=== PATIENT | female | born 1935 | race Caucasian/White ===

== ENCOUNTER 2017-04-03 07:45 | Emergency (ER) | payer OTHER ==
[~2017-04-03] VITALS: Ht 157.5 cm; Wt 93.3 kg
[~2017-04-03 07:45] MED LIST: ALDACTAZIDE1 TABLET PO; AMLODIPINE BESYL5 MG PO; ASPIRIN81 M2 PO; BACTRIM,SEPT1 TABLET PO; BYSTOLIC PO; BYSTOLIC10 MG PO; CIPRO500 MG PO; COLACE100 MG PO; COZAAR100 MG PO; DIOVAN PO; DIOVAN160 MG PO; FLAGYL500 MG PO; HYDRO; HYDRO TP; LORTAB 5-325 M1 EACH PO; Levaquin PO; NYST; NYST TP; SPIRONOLACTONE25 MG PO; TOVIAZ4 MG PO; [UNRECOGNIZED DRUG - OTHER]; [UNRECOGNIZED DRUG - OTHER] TP; [UNRECOGNIZED DRUG - REMARK] IV
[2017-04-03 09:50] LABS: EOSINOPHIL COUNT 0.2 K/uL (0-0.3); HEMATOCRIT 36.8 % (36.0-46.0); IMMATURE GRANULOCYTE (%) 0.3 % (0.0-0.7); INSTRUMENT ABS NEUTROPHIL CT 7.1 K/uL; LYMPHOCYTE COUNT 1.5 K/uL (1.0-2.8); MCH 28.3 PG (29.0-34.0); MCHC 32.3 G/DL (30.0-36.0); MCV 87.6 FL (83-99); MEAN PLAT.VOLUME 10.8 uM^3 (9.5-12.4); MONOCYTE (%) 8.1 % (3-12); MONOCYTE COUNT 0.8 K/uL (0-0.8); NEUTROPHIL (%) 73.5 % (45-76); NEUTROPHIL COUNT 7.1 K/uL (1.8-6.4); PLATELET COUNT 319 K/uL (156-360); RBC DIS.WIDTH-CV 12.6 % (11.8-14.6); RBC DIS.WIDTH-SD 40.3 % (39-53); WHITE BLOOD COUNT 9.6 K/uL (4.1-10.2)
[2017-04-03 10:02] LABS: CHLORIDE 103 mEq/L (99-109); POTASSIUM 4.1 mEq/L (3.7-5.4); SODIUM 136 mEq/L (136-147)
[2017-04-03 10:04] LABS: GLUCOSE 139 mg/dL (70-99)
[2017-04-03 10:05] LABS: ANION GAP 10 MEQ/L (2-14)
[2017-04-03 10:08] LABS: GFR ESTIMATE (CALCULATED) > 59 mL/min/
[2017-04-03 10:09] LABS: UREA NITROGEN (BUN) 15 mg/dL (9-23)
[2017-04-03] MEDS ORDERED: TYLENOL WITH C1 EACH PO (10:42)
[2017-04-03] MEDS ORDERED: CIPRO500 MG PO (10:42)
[2017-04-03] MEDS ORDERED: FLAGYL500 MG PO (10:42)
[2017-04-03] MEDS ORDERED: BENTYL20 MG PO (11:00)
[2017-04-03 11:10] VITALS: BP 177/108
== END 2017-04-03 11:11 | disposition home or self-care (01) ==
LOC: EME 07:45
PROVIDERS: Emergency Medicine
DX: K57.32 Diverticulitis of large intestine without perforation or abscess without bleeding (principal); I10 Essential (primary) hypertension; Z90.710 Acquired absence of both cervix and uterus; Z88.0 Allergy status to penicillin; Z79.82 Long term (current) use of aspirin
CPT/HCPCS: 74176; 80048; 81003; 85025; 99281; 99284; J7030

== ENCOUNTER 2017-04-10 11:34 | Emergency (ER) | payer OTHER ==
[~2017-04-10] VITALS: Ht 157.5 cm; Wt 93.3 kg
[~2017-04-10 11:34] MED LIST changes: +BENTYL20 MG PO; +TYLENOL WITH C1 EACH PO
[2017-04-10 14:49] LABS: ADD MIUA? YES; BILIRUBIN NEGATIVE; BLOOD NEGATIVE; COLOR YELLOW ((YELLOW)); GLUCOSE (STRIP) NEGATIVE; KETONES NEGATIVE; LEUKOCYTES MODERATE; NITRITE NEGATIVE; PROTEIN (STRIP) 30; SPECIFIC GRAVITY 1.006 (1.000-1.030); UROBILINOGEN 0.2 MG/DL (0.2-1.0)
[2017-04-10 14:52] LABS: BACTERIA RARE /HPF; EPITHELIAL CELLS 1+ /HPF; MUCUS NONE SEEN /LPF; RED BLOOD CELLS 0-5 /HPF (0-5); UCUL ADDED? NO; WHITE BLOOD CELLS 20-30 /HPF (0-5)
[2017-04-10] MEDS ORDERED: NAPROXEN500 MG PO (15:01)
[2017-04-10] MEDS ORDERED: LIDODERM 5% P1 PATCH TD (15:01)
[2017-04-10 15:12] VITALS: BP 158/97
== END 2017-04-10 15:16 | disposition home or self-care (01) ==
LOC: EME 11:34
PROVIDERS: Physician Assistant Medical
DX: M54.5 Low back pain (principal); I10 Essential (primary) hypertension; M16.0 Bilateral primary osteoarthritis of hip; Z88.0 Allergy status to penicillin; Z90.710 Acquired absence of both cervix and uterus; Z91.040 Latex allergy status; Z88.1 Allergy status to other antibiotic agents; Z91.013 Allergy to seafood
CPT/HCPCS: 73502; 80053; 81003; 83690; 85027; 87086; 99281; 99283; J1885

== ENCOUNTER 2017-04-24 07:04 | Emergency (ER) | payer OTHER ==
[~2017-04-24] VITALS: Ht 157.5 cm; Wt 92.1 kg
[~2017-04-24 07:04] MED LIST changes: +LIDODERM 5% P1 PATCH TD; +NAPROXEN500 MG PO
[2017-04-24 07:30] LABS: HEMATOCRIT 37.7 % (36.0-46.0); MCH 28.2 PG (29.0-34.0); MCHC 33.2 G/DL (30.0-36.0); MCV 85.1 FL (83-99); MEAN PLAT.VOLUME 10.7 uM^3 (9.5-12.4); PLATELET COUNT 295 K/uL (156-360); RBC DIS.WIDTH-CV 12.3 % (11.8-14.6); RBC DIS.WIDTH-SD 38.2 % (39-53); RED BLOOD COUNT 4.43 M/uL (3.80-5.20); WHITE BLOOD COUNT 9.7 K/uL (4.1-10.2)
[2017-04-24 07:55] LABS: TROP-I INTERPRETATION NEGATIVE; TROPONIN-I < 0.01 ng/mL (0.0-0.30)
[2017-04-24 08:24] LABS: CHLORIDE 96 mEq/L (99-109); POTASSIUM 4.1 mEq/L (3.7-5.4); SODIUM 129 mEq/L (136-147)
[2017-04-24 08:28] LABS: TOTAL BILIRUBIN 0.4 mg/dL (0.0-1.0)
[2017-04-24 08:51] LABS: GLUCOSE 161 mg/dL (70-99)
[2017-04-24 08:52] LABS: ANION GAP 11 MEQ/L (2-14)
[2017-04-24 08:54] LABS: ALKALINE PHOSPHATASE 68 IU/L (3-129); GFR ESTIMATE (CALCULATED) > 59 mL/min/
[2017-04-24 08:55] LABS: UREA NITROGEN (BUN) 8 mg/dL (9-23)
[2017-04-24 08:58] LABS: LIPASE 21 U/L (1.0-51.0)
[2017-04-24 10:26] LABS: ADD MIUA? YES; BILIRUBIN NEGATIVE; BLOOD NEGATIVE; COLOR YELLOW ((YELLOW)); GLUCOSE (STRIP) NEGATIVE; KETONES NEGATIVE; LEUKOCYTES MODERATE; NITRITE NEGATIVE; PROTEIN (STRIP) 30; SPECIFIC GRAVITY 1.008 (1.000-1.030); UROBILINOGEN 0.2 MG/DL (0.2-1.0)
[2017-04-24 10:40] LABS: BACTERIA RARE /HPF; EPITHELIAL CELLS 1+ /HPF; HYALINE CASTS 0-5 /LPF; MUCUS TRACE /LPF; RED BLOOD CELLS 0-5 /HPF (0-5); UCUL ADDED? NO; WHITE BLOOD CELLS 30-40 /HPF (0-5)
[2017-04-24] MEDS ORDERED: ZOFRAN ODT4 MG PO (11:07)
[2017-04-24] MEDS ORDERED: MACROBID100 MG PO (11:07)
[2017-04-24 11:25] VITALS: BP 156/84
== END 2017-04-24 11:26 | disposition home or self-care (01) ==
LOC: EME 07:04
PROVIDERS: Nurse Practitioner Family
DX: K57.32 Diverticulitis of large intestine without perforation or abscess without bleeding (principal); N39.0 Urinary tract infection, site not specified; R11.2 Nausea with vomiting, unspecified; I10 Essential (primary) hypertension; Z79.82 Long term (current) use of aspirin; Z90.710 Acquired absence of both cervix and uterus; Z88.0 Allergy status to penicillin
CPT/HCPCS: 74176; 80053; 81003; 83690; 84484; 85027; 99281; 99284; J2405; J7030

== ENCOUNTER 2017-04-26 23:05 | Emergency (ER) | payer OTHER ==
[~2017-04-26] VITALS: Ht 157.5 cm; Wt 92.5 kg
[~2017-04-26 23:05] MED LIST changes: +MACROBID100 MG PO; +ZOFRAN ODT4 MG PO
[2017-04-26 23:48] LABS: HEMATOCRIT 36.8 % (36.0-46.0); MCH 28.6 PG (29.0-34.0); MCHC 34.2 G/DL (30.0-36.0); MCV 83.4 FL (83-99); MEAN PLAT.VOLUME 10.7 uM^3 (9.5-12.4); PLATELET COUNT 303 K/uL (156-360); RBC DIS.WIDTH-CV 12.1 % (11.8-14.6); RBC DIS.WIDTH-SD 36.5 % (39-53); RED BLOOD COUNT 4.41 M/uL (3.80-5.20); WHITE BLOOD COUNT 11.2 K/uL (4.1-10.2)
[2017-04-26 23:57] LABS: CHLORIDE 90 mEq/L (99-109); POTASSIUM 4.2 mEq/L (3.7-5.4); SODIUM 123 mEq/L (136-147)
[2017-04-27] LABS: GLUCOSE 147 mg/dL (70-99)
[2017-04-27 00:01] LABS: ANION GAP 12 MEQ/L (2-14); TOTAL BILIRUBIN 0.4 mg/dL (0.0-1.0)
[2017-04-27 00:03] LABS: ALKALINE PHOSPHATASE 65 IU/L (3-129); GFR ESTIMATE (CALCULATED) 56 mL/min/
[2017-04-27 00:04] LABS: UREA NITROGEN (BUN) 8 mg/dL (9-23)
[2017-04-27 00:05] LABS: DIRECT BILIRUBIN 0.2 mg/dL (0.0-0.3)
[2017-04-27 00:07] LABS: LIPASE 20 U/L (1.0-51.0)
[2017-04-27] MEDS ORDERED: BYSTOLIC20 MG PO (02:33)
[2017-04-27] MEDS ORDERED: LOSARTAN POTAS100 MG PO (02:34)
[2017-04-27] MEDS ORDERED: SPIRONOLACTONE25 MG PO (02:34)
[2017-04-27] MEDS ORDERED: ASPIR 8181 M1 PO (02:34)
[2017-04-27 04:10] VITALS: BP 178/88
[2017-04-27] MEDS ORDERED: BYSTOLIC10 MG PO (10:47)
[2017-04-27] MEDS ORDERED: MELOXICAM15 MG PO (10:48)
[2017-04-27] MEDS ORDERED: OMEPRAZOLE40 M1 PO (10:49)
== END 2017-04-27 04:11 | disposition home or self-care (01) ==
LOC: EME 23:05
PROVIDERS: Emergency Medicine
DX: E86.0 Dehydration (principal); E87.1 Hypo-osmolality and hyponatremia; K21.9 Gastro-esophageal reflux disease without esophagitis; J45.909 Unspecified asthma, uncomplicated; I10 Essential (primary) hypertension; F32.9 Major depressive disorder, single episode, unspecified; E11.9 Type 2 diabetes mellitus without complications; Z88.0 Allergy status to penicillin
CPT/HCPCS: 80048; 80076; 83690; 85027; 99281; 99285; J2405; J7030

== ENCOUNTER 2017-04-27 05:40 | Inpatient (IN) | payer OTHER ==
[~2017-04-27] VITALS: Ht 157.5 cm; Wt 92.5 kg
[~2017-04-27 05:40] MED LIST changes: +ASPIR 8181 M1 PO; +BYSTOLIC20 MG PO; +LOSARTAN POTAS100 MG PO
[2017-04-27] MEDS ORDERED: BYSTOLIC10 MG PO (10:47)
[2017-04-27] MEDS ORDERED: MELOXICAM15 MG PO (10:48)
[2017-04-27] MEDS ORDERED: OMEPRAZOLE40 M1 PO (10:49)
[2017-04-27 12:57] LABS: ANION GAP 7 MEQ/L (2-14); CHLORIDE 96 MEQ/L (99-109); GFR ESTIMATE (CALCULATED) > 59 mL/min/; GLUCOSE 125 mg/dL (70-99); POTASSIUM 4.4 MEQ/L (3.7-5.4); SAMPLE HEMOLYSIS CHECK 0; SAMPLE ICTERIC CHECK 0; SAMPLE LIPEMIA CHECK 0; SODIUM 128 MEQ/L (136-147); UREA NITROGEN (BUN) 6 mg/dL (9-23)
[2017-04-27 14:40] VITALS: BP 115/60
[2017-04-27 16:55] LABS: POINT-OF-CARE METER ID UU14174225
[2017-04-27 18:42] LABS: ANION GAP 8 MEQ/L (2-14); CHLORIDE 99 MEQ/L (99-109); GFR ESTIMATE (CALCULATED) > 59 mL/min/; GLUCOSE 134 mg/dL (70-99); SAMPLE HEMOLYSIS CHECK 0; SAMPLE ICTERIC CHECK 0; SAMPLE LIPEMIA CHECK 0; SODIUM 130 MEQ/L (136-147); UREA NITROGEN (BUN) 6 mg/dL (9-23)
[2017-04-27 18:55] LABS: POTASSIUM 3.5 MEQ/L (3.7-5.4)
[2017-04-28] VITALS: BP 156/71
[2017-04-28 00:09] LABS: ADD MIUA? YES; BILIRUBIN NEGATIVE; BLOOD NEGATIVE; COLOR STRAW ((YELLOW)); GLUCOSE (STRIP) NEGATIVE; KETONES NEGATIVE; LEUKOCYTES TRACE; NITRITE NEGATIVE; PROTEIN (STRIP) NEGATIVE; SPECIFIC GRAVITY 1.005 (1.000-1.030); UROBILINOGEN 0.2 MG/DL (0.2-1.0)
[2017-04-28 00:13] LABS: BACTERIA NONE SEEN /HPF; EPITHELIAL CELLS RARE /HPF; MUCUS NONE SEEN /LPF; RED BLOOD CELLS 0-5 /HPF (0-5); UCUL ADDED? NO
[2017-04-28 05:27] LABS: POINT-OF-CARE METER ID UU14174225
[2017-04-28 06:33] LABS: ALKALINE PHOSPHATASE 49 IU/L (3-129); ANION GAP 9 MEQ/L (2-14); BASOPHIL COUNT 0.1 K/uL (0-0.1); CHLORIDE 102 MEQ/L (99-109); EOSINOPHIL (%) 3.3 % (0-5); EOSINOPHIL COUNT 0.3 K/uL (0-0.3); GFR ESTIMATE (CALCULATED) > 59 mL/min/; GLUCOSE 111 mg/dL (70-99); HEMATOCRIT 32.4 % (36.0-46.0); IMMATURE GRANULOCYTE (%) 0.5 % (0.0-0.7); IMMATURE GRANULOCYTE COUNT 0.1 K/uL; INSTRUMENT ABS NEUTROPHIL CT 5.9 K/uL; LYMPHOCYTE COUNT 2.2 K/uL (1.0-2.8); MCH 28.1 PG (29.0-34.0); MCHC 32.7 G/DL (30.0-36.0); MCV 85.9 FL (83-99); MEAN PLAT.VOLUME 11.2 uM^3 (9.5-12.4); MONOCYTE (%) 12.4 % (3-12); MONOCYTE COUNT 1.2 K/uL (0-0.8); NEUTROPHIL (%) 60.5 % (45-76); NEUTROPHIL COUNT 5.9 K/uL (1.8-6.4); PLATELET COUNT 252 K/uL (156-360); POTASSIUM 3.7 MEQ/L (3.7-5.4); RBC DIS.WIDTH-CV 12.8 % (11.8-14.6); RED BLOOD COUNT 3.77 M/uL (3.80-5.20); SAMPLE HEMOLYSIS CHECK 0; SAMPLE ICTERIC CHECK 0; SAMPLE LIPEMIA CHECK 0; SODIUM 133 MEQ/L (136-147); TOTAL BILIRUBIN 0.4 MG/DL (0.0-1.0); UREA NITROGEN (BUN) 6 mg/dL (9-23); WHITE BLOOD COUNT 9.7 K/uL (4.1-10.2)
[2017-04-28 08:00] VITALS: BP 172/81
[2017-04-28 12:00] VITALS: BP 145/79
[2017-04-28 12:14] LABS: POINT-OF-CARE METER ID UU14188625
[2017-04-28 17:31] VITALS: BP 131/60
[2017-04-29 00:23] VITALS: BP 143/86
[2017-04-29 00:39] LABS: POINT-OF-CARE METER ID UU14188625
[2017-04-29 06:00] LABS: BASOPHIL COUNT 0.1 K/uL (0-0.1); EOSINOPHIL COUNT 0.2 K/uL (0-0.3); HEMATOCRIT 31.4 % (36.0-46.0); IMMATURE GRANULOCYTE (%) 0.6 % (0.0-0.7); IMMATURE GRANULOCYTE COUNT 0.1 K/uL; INSTRUMENT ABS NEUTROPHIL CT 8.2 K/uL; LYMPHOCYTE COUNT 1.7 K/uL (1.0-2.8); MCH 28.5 PG (29.0-34.0); MCHC 32.8 G/DL (30.0-36.0); MCV 86.7 FL (83-99); MEAN PLAT.VOLUME 10.9 uM^3 (9.5-12.4); MONOCYTE (%) 12.4 % (3-12); MONOCYTE COUNT 1.5 K/uL (0-0.8); NEUTROPHIL (%) 69.9 % (45-76); NEUTROPHIL COUNT 8.2 K/uL (1.8-6.4); PLATELET COUNT 231 K/uL (156-360); RBC DIS.WIDTH-CV 12.9 % (11.8-14.6); RBC DIS.WIDTH-SD 40.8 % (39-53); RED BLOOD COUNT 3.62 M/uL (3.80-5.20); WHITE BLOOD COUNT 11.7 K/uL (4.1-10.2)
[2017-04-29 06:24] LABS: ALKALINE PHOSPHATASE 49 IU/L (3-129); ANION GAP 8 MEQ/L (2-14); CHLORIDE 100 MEQ/L (99-109); GFR ESTIMATE (CALCULATED) > 59 mL/min/; GLUCOSE 120 mg/dL (70-99); POTASSIUM 3.7 MEQ/L (3.7-5.4); SAMPLE HEMOLYSIS CHECK 0; SAMPLE ICTERIC CHECK 0; SAMPLE LIPEMIA CHECK 0; SODIUM 132 MEQ/L (136-147); TOTAL BILIRUBIN 0.4 MG/DL (0.0-1.0); UREA NITROGEN (BUN) 11 mg/dL (9-23)
[2017-04-29 06:30] LABS: POINT-OF-CARE METER ID UU13113717
[2017-04-29 07:46] LABS: Estimated Average Glucose 146 mg/dL (70-123); HEMOGLOBIN A1c (GLYCOHEMOGLOB) 6.7 % HGB (Below 5.7)
[2017-04-29 07:47] VITALS: BP 155/74
[2017-04-29 09:58] LABS: URIC ACID 4.3 mg/dL (3.1-9.2)
[2017-04-29 10:11] LABS: ERTH.SED.RATE 26 MM/HR (0-30)
[2017-04-29 10:14] LABS: C-REACTIVE PROTEIN 49.8 MG/L (0-10)
[2017-04-29 12:47] LABS: POINT-OF-CARE METER ID UU14188625
[2017-04-29 16:48] LABS: POINT-OF-CARE METER ID UU13113717
[2017-04-29 23:30] VITALS: BP 137/65
[2017-04-30 00:31] LABS: POINT-OF-CARE METER ID UU14174225
[2017-04-30 05:47] LABS: BASOPHIL COUNT 0.1 K/uL (0-0.1); EOSINOPHIL (%) 1.8 % (0-5); EOSINOPHIL COUNT 0.3 K/uL (0-0.3); HEMATOCRIT 31.7 % (36.0-46.0); IMMATURE GRANULOCYTE (%) 0.8 % (0.0-0.7); IMMATURE GRANULOCYTE COUNT 0.1 K/uL; INSTRUMENT ABS NEUTROPHIL CT 9.6 K/uL; MCH 28.4 PG (29.0-34.0); MCHC 33.1 G/DL (30.0-36.0); MCV 85.7 FL (83-99); MEAN PLAT.VOLUME 10.9 uM^3 (9.5-12.4); MONOCYTE (%) 12.5 % (3-12); MONOCYTE COUNT 1.7 K/uL (0-0.8); NEUTROPHIL (%) 70.1 % (45-76); NEUTROPHIL COUNT 9.6 K/uL (1.8-6.4); PLATELET COUNT 234 K/uL (156-360); RBC DIS.WIDTH-SD 40.3 % (39-53); WHITE BLOOD COUNT 13.6 K/uL (4.1-10.2)
[2017-04-30 06:14] LABS: ALKALINE PHOSPHATASE 48 IU/L (3-129); ANION GAP 9 MEQ/L (2-14); CHLORIDE 96 MEQ/L (99-109); GFR ESTIMATE (CALCULATED) > 59 mL/min/; GLUCOSE 120 mg/dL (70-99); POTASSIUM 3.7 MEQ/L (3.7-5.4); SAMPLE HEMOLYSIS CHECK 0; SAMPLE ICTERIC CHECK 0; SAMPLE LIPEMIA CHECK 0; SODIUM 130 MEQ/L (136-147); UREA NITROGEN (BUN) 9 mg/dL (9-23)
[2017-04-30 06:15] LABS: TOTAL BILIRUBIN 0.6 MG/DL (0.0-1.0)
[2017-04-30 07:46] VITALS: BP 137/61
[2017-04-30 13:25] LABS: POINT-OF-CARE METER ID UU13113717; POINT-OF-CARE USER ID STWAMT
[2017-04-30 15:25] VITALS: BP 140/66
[2017-04-30 16:58] LABS: ADD MIUA? YES; BILIRUBIN NEGATIVE; BLOOD SMALL; COLOR YELLOW ((YELLOW)); GLUCOSE (STRIP) NEGATIVE; KETONES NEGATIVE; LEUKOCYTES LARGE; NITRITE NEGATIVE; PROTEIN (STRIP) NEGATIVE; SPECIFIC GRAVITY 1.004 (1.000-1.030); UROBILINOGEN 0.2 MG/DL (0.2-1.0)
[2017-04-30 17:26] LABS: BACTERIA RARE /HPF; EPITHELIAL CELLS 1+ /HPF; MUCUS TRACE /LPF; UCUL ADDED? YES; UNCLASSIFIED CRYSTALS 3+ /HPF; WHITE BLOOD CELLS TNTC /HPF (0-5)
[2017-04-30 18:06] LABS: POINT-OF-CARE METER ID UU13113717; POINT-OF-CARE USER ID STWAMT
[2017-04-30 23:42] VITALS: BP 158/69
[2017-05-01 00:37] LABS: POINT-OF-CARE METER ID UU14174225
[2017-05-01 05:40] LABS: EOSINOPHIL COUNT 0.4 K/uL (0-0.3); HEMATOCRIT 29.1 % (36.0-46.0); IMMATURE GRANULOCYTE (%) 0.9 % (0.0-0.7); IMMATURE GRANULOCYTE COUNT 0.1 K/uL; INSTRUMENT ABS NEUTROPHIL CT 8.2 K/uL; LYMPHOCYTE COUNT 1.6 K/uL (1.0-2.8); MCHC 35.1 G/DL (30.0-36.0); MCV 85.6 FL (83-99); MEAN PLAT.VOLUME 11.4 uM^3 (9.5-12.4); MONOCYTE (%) 11.2 % (3-12); MONOCYTE COUNT 1.3 K/uL (0-0.8); NEUTROPHIL (%) 71.1 % (45-76); NEUTROPHIL COUNT 8.2 K/uL (1.8-6.4); PLATELET COUNT 212 K/uL (156-360); RBC DIS.WIDTH-CV 13.1 % (11.8-14.6); WHITE BLOOD COUNT 11.5 K/uL (4.1-10.2)
[2017-05-01 06:33] LABS: ALKALINE PHOSPHATASE 47 IU/L (3-129); ANION GAP 8 MEQ/L (2-14); CHLORIDE 98 MEQ/L (99-109); GFR ESTIMATE (CALCULATED) > 59 mL/min/; GLUCOSE 123 mg/dL (70-99); POTASSIUM 3.7 MEQ/L (3.7-5.4); SAMPLE HEMOLYSIS CHECK 0; SAMPLE ICTERIC CHECK 0; SAMPLE LIPEMIA CHECK 0; SODIUM 133 MEQ/L (136-147); TOTAL BILIRUBIN 0.5 MG/DL (0.0-1.0); UREA NITROGEN (BUN) 12 mg/dL (9-23)
[2017-05-01 06:35] LABS: POINT-OF-CARE METER ID UU14174225
[2017-05-01 08:12] VITALS: BP 159/74
[2017-05-01 12:02] LABS: POINT-OF-CARE METER ID UU14174225
[2017-05-01] MEDS ORDERED: AMLODIPINE BESYL5 MG PO (12:07)
== END 2017-05-01 13:05 | disposition home or self-care (01) | DRG 641 ==
LOC: EME 05:40 → EDOF 07:57 → 5SOUTH 07:57 → EDOF 08:27 → 5SOUTH 11:28
PROVIDERS: Hospitalist
DX: E87.1 Hypo-osmolality and hyponatremia (principal); K57.32 Diverticulitis of large intestine without perforation or abscess without bleeding; J90 Pleural effusion, not elsewhere classified; K21.9 Gastro-esophageal reflux disease without esophagitis; I10 Essential (primary) hypertension; Z60.2 Problems related to living alone; E11.9 Type 2 diabetes mellitus without complications; J45.909 Unspecified asthma, uncomplicated; K52.9 Noninfective gastroenteritis and colitis, unspecified; M17.12 Unilateral primary osteoarthritis, left knee; M18.12 Unilateral primary osteoarthritis of first carpometacarpal joint, left hand; R11.0 Nausea; K59.00 Constipation, unspecified; Z88.0 Allergy status to penicillin; Z91.013 Allergy to seafood; Z88.1 Allergy status to other antibiotic agents; Z91.040 Latex allergy status; Z90.711 Acquired absence of uterus with remaining cervical stump; Z79.82 Long term (current) use of aspirin; Z80.1 Family history of malignant neoplasm of trachea, bronchus and lung; Z82.49 Family history of ischemic heart disease and other diseases of the circulatory system
CPT/HCPCS: 73130; 74176; 80048; 80048 91; 80053; 80076; 81003; 82948; 83036; 83690; 84484; 84550; 85025; 85027; 85651; 86140; 87086; 99281; 99284; 99285; J0360; J1644; J1815; J2405; J7030; J7042; S0028

== ENCOUNTER 2017-05-04 07:53 | Inpatient (IN) | payer OTHER ==
[~2017-05-04] VITALS: Ht 157.5 cm; Wt 88.8 kg
[~2017-05-04 07:53] MED LIST changes: +MELOXICAM15 MG PO; +OMEPRAZOLE40 M1 PO
[2017-05-04 08:57] LABS: BASOPHIL COUNT 0.1 K/uL (0-0.1); EOSINOPHIL (%) 1.9 % (0-5); EOSINOPHIL COUNT 0.2 K/uL (0-0.3); HEMATOCRIT 33.2 % (36.0-46.0); IMMATURE GRANULOCYTE (%) 0.5 % (0.0-0.7); IMMATURE GRANULOCYTE COUNT 0.1 K/uL; INSTRUMENT ABS NEUTROPHIL CT 6.7 K/uL; LYMPHOCYTE COUNT 1.3 K/uL (1.0-2.8); MCH 28.8 PG (29.0-34.0); MCHC 33.4 G/DL (30.0-36.0); MEAN PLAT.VOLUME 10.8 uM^3 (9.5-12.4); MONOCYTE (%) 10.2 % (3-12); NEUTROPHIL (%) 72.6 % (45-76); NEUTROPHIL COUNT 6.7 K/uL (1.8-6.4); RBC DIS.WIDTH-CV 13.1 % (11.8-14.6); RBC DIS.WIDTH-SD 40.5 % (39-53); RED BLOOD COUNT 3.86 M/uL (3.80-5.20); WHITE BLOOD COUNT 9.3 K/uL (4.1-10.2)
[2017-05-04 09:05] LABS: CHLORIDE 98 mEq/L (99-109); POTASSIUM 3.4 mEq/L (3.7-5.4); SODIUM 136 mEq/L (136-147)
[2017-05-04 09:07] LABS: GLUCOSE 167 mg/dL (70-99)
[2017-05-04 09:08] LABS: ANION GAP 12 MEQ/L (2-14)
[2017-05-04 09:09] LABS: TOTAL BILIRUBIN 0.4 mg/dL (0.0-1.0)
[2017-05-04 09:10] LABS: ALKALINE PHOSPHATASE 65 IU/L (3-129); PLATELET COUNT 297 K/uL (156-360)
[2017-05-04 09:11] LABS: GFR ESTIMATE (CALCULATED) > 59 mL/min/
[2017-05-04 09:12] LABS: UREA NITROGEN (BUN) 7 mg/dL (9-23)
[2017-05-04 09:14] LABS: TROP-I INTERPRETATION NEGATIVE; TROPONIN-I < 0.01 ng/mL (0.0-0.30)
[2017-05-04 09:19] LABS: INTER. NORMALIZED RATIO 1.1
[2017-05-04] MEDS ORDERED: EXTRA STRENGTH500 M1 PO (11:38)
[2017-05-04] MEDS ORDERED: BENTYL20 MG PO (11:40)
[2017-05-04] MEDS ORDERED: ZOFRAN ODT8 MG PO (11:42)
[2017-05-04] MEDS ORDERED: NAPROXEN500 MG PO (11:42)
[2017-05-04] MEDS ORDERED: ALDACTONE25 MG PO (11:43)
[2017-05-04 12:32] VITALS: BP 169/79
[2017-05-04 13:21] LABS: TROP-I INTERPRETATION NEGATIVE; TROPONIN-I 0.02 ng/mL (0.0-0.30)
[2017-05-04 14:38] LABS: TROP-I INTERPRETATION NEGATIVE; TROPONIN-I 0.03 ng/mL (0.0-0.30)
[2017-05-04 14:40] LABS: ANION GAP 12 MEQ/L (2-14); CHLORIDE 96 MEQ/L (99-109); GFR ESTIMATE (CALCULATED) > 59 mL/min/; GLUCOSE 175 mg/dL (70-99); POTASSIUM 3.3 MEQ/L (3.7-5.4); SAMPLE HEMOLYSIS CHECK 0; SAMPLE ICTERIC CHECK 0; SAMPLE LIPEMIA CHECK 0; SODIUM 135 MEQ/L (136-147); UREA NITROGEN (BUN) 7 mg/dL (9-23)
[2017-05-04 14:42] LABS: MAGNESIUM 0.9 mg/dl (1.3-2.7)
[2017-05-04 15:30] VITALS: BP 172/85
[2017-05-04 16:00] VITALS: BP 158/71
[2017-05-04 18:33] LABS: TROP-I INTERPRETATION NEGATIVE; TROPONIN-I 0.04 ng/mL (0.0-0.30)
[2017-05-04 20:00] VITALS: BP 170/86
[2017-05-04 23:07] VITALS: BP 158/73
[2017-05-05 03:55] VITALS: BP 139/65
[2017-05-05 05:46] LABS: HEMATOCRIT 34.3 % (36.0-46.0); MCH 28.6 PG (29.0-34.0); MCHC 33.5 G/DL (30.0-36.0); MCV 85.3 FL (83-99); MEAN PLAT.VOLUME 10.7 uM^3 (9.5-12.4); PLATELET COUNT 338 K/uL (156-360); RBC DIS.WIDTH-CV 13.1 % (11.8-14.6); RBC DIS.WIDTH-SD 40.4 % (39-53); RED BLOOD COUNT 4.02 M/uL (3.80-5.20); WHITE BLOOD COUNT 9.2 K/uL (4.1-10.2)
[2017-05-05 06:13] LABS: ANION GAP 10 MEQ/L (2-14); CHLORIDE 95 MEQ/L (99-109); GFR ESTIMATE (CALCULATED) > 59 mL/min/; GLUCOSE 131 mg/dL (70-99); POTASSIUM 4.1 MEQ/L (3.7-5.4); SAMPLE HEMOLYSIS CHECK 0; SAMPLE ICTERIC CHECK 0; SAMPLE LIPEMIA CHECK 0; SODIUM 134 MEQ/L (136-147); UREA NITROGEN (BUN) 10 mg/dL (9-23)
[2017-05-05 07:36] VITALS: BP 156/75
[2017-05-05 11:22] VITALS: BP 137/76
[2017-05-05 16:05] VITALS: BP 144/69
[2017-05-05 19:24] VITALS: BP 134/60
[2017-05-05 23:30] VITALS: BP 135/71
[2017-05-06 04:17] VITALS: BP 133/73
[2017-05-06 07:45] VITALS: BP 156/72
[2017-05-06 07:46] LABS: Estimated Average Glucose 140 mg/dL (70-123); HEMOGLOBIN A1c (GLYCOHEMOGLOB) 6.5 % HGB (Below 5.7)
[2017-05-06 11:51] VITALS: BP 134/63
[2017-05-06] MEDS ORDERED: ELIQUIS5 MG PO (12:27)
== END 2017-05-06 15:45 | disposition home or self-care (01) | DRG 292 ==
LOC: EME 07:53 → EDOF 10:36 → 5WEST 12:06 → 4EAST 15:17
PROVIDERS: Emergency Medicine; Hospitalist; Internal Medicine Cardiovascular Disease
DX: I50.31 Acute diastolic (congestive) heart failure (principal); E11.65 Type 2 diabetes mellitus with hyperglycemia; I48.0 Paroxysmal atrial fibrillation; I11.0 Hypertensive heart disease with heart failure; J98.4 Other disorders of lung; K57.92 Diverticulitis of intestine, part unspecified, without perforation or abscess without bleeding; I49.3 Ventricular premature depolarization; K21.9 Gastro-esophageal reflux disease without esophagitis; I43 Cardiomyopathy in diseases classified elsewhere; K59.00 Constipation, unspecified; R09.02 Hypoxemia; Z68.37 Body mass index [BMI] 37.0-37.9, adult; J45.909 Unspecified asthma, uncomplicated; Z79.899 Other long term (current) drug therapy; Z79.82 Long term (current) use of aspirin; Z72.0 Tobacco use; Z82.49 Family history of ischemic heart disease and other diseases of the circulatory system
CPT/HCPCS: 71020; 80048; 80048 91; 80053; 81003; 83036; 83735; 83880; 84443; 84484; 85025; 85027; 85610; 93005; 93306; 93971; 94799; 99281; 99285; J0360; J1650; J1940; J2405; J3475; J3480

== ENCOUNTER 2017-06-12 11:20 | Day surgery (SDC) | payer OTHER ==
[~2017-06-12] VITALS: Ht 152.4 cm; Wt 92.6 kg
[~2017-06-12 11:20] MED LIST changes: +ALDACTONE25 MG PO; +ELIQUIS5 MG PO; +EXTRA STRENGTH500 M1 PO; +ZOFRAN ODT8 MG PO
[2017-06-12] MEDS ORDERED: ASPIRIN81 M2 PO (11:47)
[2017-06-12 20:00] VITALS: BP 135/68
[2017-06-13 00:19] VITALS: BP 132/66
[2017-06-13 04:00] VITALS: BP 161/72
[2017-06-13 05:17] VITALS: BP 122/58
[2017-06-13 05:25] LABS: EOSINOPHIL (%) 0 % (0-5); HEMATOCRIT 29.7 % (36.0-46.0); IMMATURE GRANULOCYTE (%) 0.6 % (0.0-0.7); IMMATURE GRANULOCYTE COUNT 0.1 K/uL; INSTRUMENT ABS NEUTROPHIL CT 10.6 K/uL; LYMPHOCYTE COUNT 1.5 K/uL (1.0-2.8); MCH 28.9 PG (29.0-34.0); MCHC 33.3 G/DL (30.0-36.0); MCV 86.6 FL (83-99); MEAN PLAT.VOLUME 10.5 uM^3 (9.5-12.4); MONOCYTE (%) 4.4 % (3-12); MONOCYTE COUNT 0.6 K/uL (0-0.8); NEUTROPHIL (%) 83.4 % (45-76); NEUTROPHIL COUNT 10.6 K/uL (1.8-6.4); PLATELET COUNT 305 K/uL (156-360); RBC DIS.WIDTH-CV 13.2 % (11.8-14.6); RBC DIS.WIDTH-SD 41.7 % (39-53); RED BLOOD COUNT 3.43 M/uL (3.80-5.20); WHITE BLOOD COUNT 12.7 K/uL (4.1-10.2)
[2017-06-13 05:46] LABS: ANION GAP 9 MEQ/L (2-14); CHLORIDE 102 MEQ/L (99-109); GFR ESTIMATE (CALCULATED) > 59 mL/min/; GLUCOSE 146 mg/dL (70-99); POTASSIUM 4.1 MEQ/L (3.7-5.4); SAMPLE HEMOLYSIS CHECK 0; SAMPLE ICTERIC CHECK 0; SAMPLE LIPEMIA CHECK 0; SODIUM 132 MEQ/L (136-147); UREA NITROGEN (BUN) 18 mg/dL (9-23)
[2017-06-13 08:21] VITALS: BP 143/63
[2017-06-13] MEDS ORDERED: PANTOPRAZOLE SO40 MG PO (10:31)
[2017-06-13] MEDS ORDERED: CLOPIDOGREL75 MG PO (10:31)
== END 2017-06-13 11:46 | disposition home or self-care (01) ==
LOC: CATH 11:20 → 2SOUTH 14:49 → 4EAST 14:49 → 2SOUTH 14:49 → ENRESERV 14:53 → 4EAST 19:46 → ENPENDDIS 06-13 → 4EAST 06-13 11:46
PROVIDERS: Internal Medicine Cardiovascular Disease
DX: I25.10 Atherosclerotic heart disease of native coronary artery without angina pectoris (principal); I11.0 Hypertensive heart disease with heart failure; I50.32 Chronic diastolic (congestive) heart failure; I48.0 Paroxysmal atrial fibrillation; Z79.01 Long term (current) use of anticoagulants; I35.0 Nonrheumatic aortic (valve) stenosis; I34.0 Nonrheumatic mitral (valve) insufficiency; I27.2 Other secondary pulmonary hypertension; E66.9 Obesity, unspecified; Z68.33 Body mass index [BMI] 33.0-33.9, adult; Z88.0 Allergy status to penicillin; Z79.82 Long term (current) use of aspirin; Z82.49 Family history of ischemic heart disease and other diseases of the circulatory system; Z82.5 Family history of asthma and other chronic lower respiratory diseases
CPT/HCPCS: 80048; 85025; 85347; 93005; C1725; C1769; C1874; C1887; G0378; J0153; J1200; J1644; J2250; J2930; J3010; J3246; J7050; S0028

== ENCOUNTER 2017-06-19 07:31 | Inpatient (IN) | payer OTHER ==
[~2017-06-19] VITALS: Ht 160 cm; Wt 88.0 kg
[~2017-06-19 07:31] MED LIST changes: +CLOPIDOGREL75 MG PO; +PANTOPRAZOLE SO40 MG PO
[2017-06-19 08:08] LABS: BASOPHIL COUNT 0.1 K/uL (0-0.1); EOSINOPHIL (%) 1.4 % (0-5); EOSINOPHIL COUNT 0.1 K/uL (0-0.3); HEMATOCRIT 32.8 % (36.0-46.0); IMMATURE GRANULOCYTE (%) 0.6 % (0.0-0.7); IMMATURE GRANULOCYTE COUNT 0.1 K/uL; INSTRUMENT ABS NEUTROPHIL CT 7.7 K/uL; LYMPHOCYTE COUNT 1.3 K/uL (1.0-2.8); MCH 28.9 PG (29.0-34.0); MCHC 32.9 G/DL (30.0-36.0); MCV 87.7 FL (83-99); MEAN PLAT.VOLUME 10.6 uM^3 (9.5-12.4); MONOCYTE (%) 9.4 % (3-12); NEUTROPHIL (%) 75.3 % (45-76); NEUTROPHIL COUNT 7.7 K/uL (1.8-6.4); PLATELET COUNT 282 K/uL (156-360); RBC DIS.WIDTH-CV 13.2 % (11.8-14.6); RBC DIS.WIDTH-SD 42.5 % (39-53); RED BLOOD COUNT 3.74 M/uL (3.80-5.20); WHITE BLOOD COUNT 10.3 K/uL (4.1-10.2)
[2017-06-19 08:26] LABS: INTER. NORMALIZED RATIO 1.3; PROTHROMBIN TIME 14.1 SEC (10.2-12.9)
[2017-06-19 08:29] LABS: CHLORIDE 102 mEq/L (99-109); POTASSIUM 3.5 mEq/L (3.7-5.4); PTT 30.7 SEC (25-37); SODIUM 135 mEq/L (136-147)
[2017-06-19 08:30] LABS: GLUCOSE 143 mg/dL (70-99)
[2017-06-19 08:32] LABS: ANION GAP 10 MEQ/L (2-14)
[2017-06-19 08:34] LABS: GFR ESTIMATE (CALCULATED) > 59 mL/min/
[2017-06-19 08:35] LABS: UREA NITROGEN (BUN) 13 mg/dL (9-23)
[2017-06-19 09:37] LABS: ADD MIUA? YES; BILIRUBIN NEGATIVE; BLOOD NEGATIVE; COLOR STRAW ((YELLOW)); GLUCOSE (STRIP) NEGATIVE; KETONES NEGATIVE; LEUKOCYTES LARGE; NITRITE NEGATIVE; PROTEIN (STRIP) NEGATIVE; SPECIFIC GRAVITY 1.008 (1.000-1.030); UROBILINOGEN 0.2 MG/DL (0.2-1.0)
[2017-06-19 09:41] LABS: BACTERIA RARE /HPF; EPITHELIAL CELLS 1+ /HPF; MUCUS TRACE /LPF; RED BLOOD CELLS 0-5 /HPF (0-5); WHITE BLOOD CELLS TNTC /HPF (0-5)
[2017-06-19] MEDS ORDERED: ATORVASTATIN CA10 MG PO (12:03)
[2017-06-19 12:08] LABS: TROP-I INTERPRETATION NEGATIVE; TROPONIN-I 0.05 ng/mL (0.0-0.30)
[2017-06-19 13:08] VITALS: BP 191/75
[2017-06-19 17:41] LABS: POINT-OF-CARE METER ID UU14162513
[2017-06-19 18:36] LABS: TROP-I INTERPRETATION NEGATIVE; TROPONIN-I 0.04 ng/mL (0.0-0.30)
[2017-06-19 19:30] VITALS: BP 163/73
[2017-06-19 23:39] VITALS: BP 135/67
[2017-06-20 03:53] VITALS: BP 128/61
[2017-06-20 05:57] LABS: ANION GAP 6 MEQ/L (2-14); CHLORIDE 107 MEQ/L (99-109); GFR ESTIMATE (CALCULATED) > 59 mL/min/; GLUCOSE 108 mg/dL (70-99); POTASSIUM 3.9 MEQ/L (3.7-5.4); SAMPLE HEMOLYSIS CHECK 0; SAMPLE ICTERIC CHECK 0; SAMPLE LIPEMIA CHECK 0; SODIUM 138 MEQ/L (136-147); UREA NITROGEN (BUN) 9 mg/dL (9-23)
[2017-06-20 08:27] LABS: HEMATOCRIT 31.2 % (36.0-46.0); MCH 29.5 PG (29.0-34.0); MCV 89.4 FL (83-99); MEAN PLAT.VOLUME 10.7 uM^3 (9.5-12.4); PLATELET COUNT 258 K/uL (156-360); RBC DIS.WIDTH-CV 13.5 % (11.8-14.6); RBC DIS.WIDTH-SD 43.7 % (39-53); RED BLOOD COUNT 3.49 M/uL (3.80-5.20); WHITE BLOOD COUNT 8.6 K/uL (4.1-10.2)
[2017-06-20 08:53] LABS: ANION GAP 6 MEQ/L (2-14); CHLORIDE 105 MEQ/L (99-109); GFR ESTIMATE (CALCULATED) > 59 mL/min/; GLUCOSE 117 mg/dL (70-99); POTASSIUM 3.8 MEQ/L (3.7-5.4); SAMPLE HEMOLYSIS CHECK 0; SAMPLE ICTERIC CHECK 0; SAMPLE LIPEMIA CHECK 0; SODIUM 137 MEQ/L (136-147); UREA NITROGEN (BUN) 9 mg/dL (9-23)
[2017-06-20 09:30] VITALS: BP 159/70
[2017-06-20 11:59] VITALS: BP 164/68
[2017-06-20 16:22] VITALS: BP 153/70
[2017-06-20 20:00] VITALS: BP 166/73
[2017-06-21] VITALS (7 sets, daily range): BP systolic 140–181; BP diastolic 70–88
[2017-06-21 12:26] LABS: POINT-OF-CARE METER ID UU13113700
[2017-06-21 17:01] LABS: POINT-OF-CARE METER ID UU13113831
[2017-06-22 04:04] VITALS: BP 121/59
[2017-06-22 07:20] VITALS: BP 158/77
[2017-06-22 11:15] VITALS: BP 134/60
[2017-06-22 15:40] VITALS: BP 138/61
[2017-06-22 20:09] VITALS: BP 135/61
[2017-06-23 00:04] VITALS: BP 146/67
[2017-06-23 04:27] VITALS: BP 135/63
[2017-06-23 07:00] LABS: ANION GAP 7 MEQ/L (2-14); CHLORIDE 101 MEQ/L (99-109); GFR ESTIMATE (CALCULATED) > 59 mL/min/; GLUCOSE 122 mg/dL (70-99); POTASSIUM 3.7 MEQ/L (3.7-5.4); SAMPLE HEMOLYSIS CHECK 0; SAMPLE ICTERIC CHECK 0; SAMPLE LIPEMIA CHECK 0; SODIUM 134 MEQ/L (136-147); UREA NITROGEN (BUN) 14 mg/dL (9-23)
[2017-06-23 07:40] VITALS: BP 141/66
[2017-06-23] MEDS ORDERED: ANTIVERT25 MG PO (09:24)
[2017-06-23] MEDS ORDERED: BYSTOLIC5 MG PO (09:24)
[2017-06-23 11:19] VITALS: BP 132/80
== END 2017-06-23 13:50 | disposition home health service (06) | DRG 690 ==
LOC: EME 07:31 → EDOF 11:13 → 5WEST 11:13 → ENRESERV 11:30 → 5WEST 12:54 → 2EAST 06-20 15:21 → 5WEST 06-20 15:21 → ENRESERV 06-20 15:22 → CANRESERV 06-20 15:22 → ENRESERV 06-21 16:20 → 2EAST 06-21 20:34
PROVIDERS: Hospitalist; Internal Medicine; Nurse Practitioner Adult Health; Physician Assistant
DX: N30.00 Acute cystitis without hematuria (principal); I95.1 Orthostatic hypotension; H81.10 Benign paroxysmal vertigo, unspecified ear; H83.2X3 Labyrinthine dysfunction, bilateral; E11.9 Type 2 diabetes mellitus without complications; E61.1 Iron deficiency; E87.6 Hypokalemia; I10 Essential (primary) hypertension; I44.7 Left bundle-branch block, unspecified; I25.10 Atherosclerotic heart disease of native coronary artery without angina pectoris; I35.0 Nonrheumatic aortic (valve) stenosis; K21.9 Gastro-esophageal reflux disease without esophagitis; J45.909 Unspecified asthma, uncomplicated; I73.9 Peripheral vascular disease, unspecified; I48.0 Paroxysmal atrial fibrillation; Z88.0 Allergy status to penicillin; Z91.040 Latex allergy status; Z79.01 Long term (current) use of anticoagulants; Z79.02 Long term (current) use of antithrombotics/antiplatelets; Z91.013 Allergy to seafood; Z95.5 Presence of coronary angioplasty implant and graft; Z82.49 Family history of ischemic heart disease and other diseases of the circulatory system
CPT/HCPCS: 70450; 70551; 71010; 80048; 80048 91; 81003; 82948; 84484; 85025; 85027; 85610; 85730; 93005; 99281; 99285; G0378; G8978 GP CI; G8979 GP CH; G8987 GO CH; G8989 GO CH; J0696; J1940; J2060; J2405; J3480; J7030; J7050

== ENCOUNTER 2018-01-06 11:24 | Emergency (ER) | payer OTHER ==
[~2018-01-06] VITALS: Ht 160 cm; Wt 92.0 kg
[~2018-01-06 11:24] MED LIST changes: +ANTIVERT25 MG PO; +ATORVASTATIN CA10 MG PO; +BYSTOLIC5 MG PO
[2018-01-06] MEDS ORDERED: BYSTOLIC10 MG PO (11:49)
[2018-01-06 12:06] LABS: BASOPHIL (%) 0.7 % (0-1); EOSINOPHIL (%) 0.5 % (0-5); HEMATOCRIT 27.4 % (36.0-46.0); HEMOGLOBIN 8.5 G/DL (11.9-15.5); IMMATURE GRANULOCYTE (%) 0.3 % (0.0-0.7); LYMPHOCYTE (%) 18.1 % (15-42); LYMPHOCYTE COUNT 1.1 K/uL (1.0-2.8); MCH 25.1 PG (29.0-34.0); MCV 80.8 FL (83-99); MONOCYTE (%) 8.5 % (3-12); MONOCYTE COUNT 0.5 K/uL (0-0.8); NEUTROPHIL (%) 71.9 % (45-76); NEUTROPHIL COUNT 4.4 K/uL (1.8-6.4); PLATELET COUNT 240 K/uL (156-360); RBC DIS.WIDTH-CV 14.8 % (11.8-14.6); RBC DIS.WIDTH-SD 43.6 % (39-53); RED BLOOD COUNT 3.39 M/uL (3.80-5.20); WHITE BLOOD COUNT 6.1 K/uL (4.1-10.2)
[2018-01-06 12:15] LABS: CHLORIDE 104 mEq/L (99-109); POTASSIUM 3.8 mEq/L (3.7-5.4); SODIUM 138 mEq/L (136-147)
[2018-01-06 12:17] LABS: GLUCOSE 159 mg/dL (70-99)
[2018-01-06 12:20] LABS: CREATININE 0.8 mg/dL (0.6-1.3); GFR ESTIMATE (CALCULATED) > 59 mL/min/
[2018-01-06 12:21] LABS: UREA NITROGEN (BUN) 12 mg/dL (9-23)
[2018-01-06 12:27] LABS: TROP-I INTERPRETATION NEGATIVE; TROPONIN-I < 0.01 ng/mL (0.0-0.30)
[2018-01-06 14:33] LABS: TROP-I INTERPRETATION NEGATIVE; TROPONIN-I 0.02 ng/mL (0.0-0.30)
[2018-01-06] MEDS ORDERED: ZITHROMAX Z-PA250 MG PO (14:54)
[2018-01-06] MEDS ORDERED: PREDNISONE20 MG PO (14:54)
[2018-01-06 15:15] VITALS: BP 170/86
== END 2018-01-06 15:47 | disposition home or self-care (01) ==
LOC: EME 11:24
PROVIDERS: Emergency Medicine
DX: J20.9 Acute bronchitis, unspecified (principal); D64.9 Anemia, unspecified; I44.7 Left bundle-branch block, unspecified; I10 Essential (primary) hypertension; I48.91 Unspecified atrial fibrillation; Z79.01 Long term (current) use of anticoagulants; Z79.02 Long term (current) use of antithrombotics/antiplatelets; Z88.0 Allergy status to penicillin; Z90.711 Acquired absence of uterus with remaining cervical stump
CPT/HCPCS: 71045; 80048; 83880; 84484; 85025; 93005; 94640; 99281; 99285; J1940; J2930

== ENCOUNTER 2018-01-11 08:54 | Inpatient (IN) | payer OTHER ==
[~2018-01-11] VITALS: Ht 160 cm; Wt 85.5 kg
[~2018-01-11 08:54] MED LIST changes: +PREDNISONE20 MG PO; +ZITHROMAX Z-PA250 MG PO
[2018-01-11 10:08] LABS: BASOPHIL (%) 0.8 % (0-1); BASOPHIL COUNT 0.1 K/uL (0-0.1); EOSINOPHIL (%) 1.2 % (0-5); EOSINOPHIL COUNT 0.1 K/uL (0-0.3); HEMATOCRIT 26.8 % (36.0-46.0); HEMOGLOBIN 8.2 G/DL (11.9-15.5); IMMATURE GRANULOCYTE (%) 0.2 % (0.0-0.7); LYMPHOCYTE (%) 16.5 % (15-42); LYMPHOCYTE COUNT 1.1 K/uL (1.0-2.8); MCH 24.8 PG (29.0-34.0); MCHC 30.6 G/DL (30.0-36.0); MONOCYTE COUNT 0.7 K/uL (0-0.8); NEUTROPHIL (%) 71.3 % (45-76); NEUTROPHIL COUNT 4.7 K/uL (1.8-6.4); PLATELET COUNT 234 K/uL (156-360); RBC DIS.WIDTH-CV 14.8 % (11.8-14.6); RBC DIS.WIDTH-SD 43.8 % (39-53); RED BLOOD COUNT 3.31 M/uL (3.80-5.20); WHITE BLOOD COUNT 6.5 K/uL (4.1-10.2)
[2018-01-11 10:14] LABS: INTER. NORMALIZED RATIO 1.3
[2018-01-11 10:17] LABS: PTT 25.7 SEC (25-37)
[2018-01-11 10:20] LABS: CHLORIDE 101 mEq/L (99-109); SODIUM 135 mEq/L (136-147)
[2018-01-11 10:21] LABS: GLUCOSE 159 mg/dL (70-99)
[2018-01-11 10:25] LABS: CREATININE 0.8 mg/dL (0.6-1.3)
[2018-01-11 10:26] LABS: GFR ESTIMATE (CALCULATED) > 59 mL/min/; UREA NITROGEN (BUN) 17 mg/dL (9-23)
[2018-01-11 10:30] LABS: TROP-I INTERPRETATION NEGATIVE; TROPONIN-I 0.02 ng/mL (0.0-0.30)
[2018-01-11] MEDS ORDERED: BYSTOLIC10 MG PO (11:20)
[2018-01-11] MEDS ORDERED: OMEPRAZOLE40 M1 PO (11:21)
[2018-01-11] MEDS ORDERED: LASIX20 MG PO (11:22)
[2018-01-11 13:19] LABS: IMM.RETIC FRACTION 17.9 % (3-19); RETIC HGB EQUIVALENT 26.2 (28-36); RETICULOCYTE COUNT 1.7 % (0.5-1.8)
[2018-01-11 14:17] LABS: FOLIC ACID (FOLATE) > 22.0 NG/ML (5.0-22.0)
[2018-01-11 16:05] LABS: TROP-I INTERPRETATION NEGATIVE; TROPONIN-I < 0.01 ng/mL (0.0-0.30)
[2018-01-11 16:08] VITALS: BP 170/77
[2018-01-11 17:48] LABS: FERRITIN 9 NG/ML (10-291)
[2018-01-11 18:39] LABS: IRON 40 MCG/DL (35-150); TRANSFERRIN (TIBC) 296.2 mg/dL (215-380); TRANSFERRIN SATUR. 14 % (20-55)
[2018-01-11 23:58] VITALS: BP 139/65
[2018-01-12 05:52] LABS: HEMOGLOBIN 8.5 G/DL (11.9-15.5); MCH 25.2 PG (29.0-34.0); MCHC 31.5 G/DL (30.0-36.0); MCV 80.1 FL (83-99); PLATELET COUNT 236 K/uL (156-360); RBC DIS.WIDTH-CV 14.9 % (11.8-14.6); RBC DIS.WIDTH-SD 43.5 % (39-53); RED BLOOD COUNT 3.37 M/uL (3.80-5.20); WHITE BLOOD COUNT 7.5 K/uL (4.1-10.2)
[2018-01-12 06:15] LABS: CHLORIDE 98 MEQ/L (99-109); CREATININE 0.9 MG/DL (0.6-1.3); GFR ESTIMATE (CALCULATED) > 59 mL/min/; GLUCOSE 123 mg/dL (70-99); POTASSIUM 3.6 MEQ/L (3.7-5.4); SODIUM 133 MEQ/L (136-147); UREA NITROGEN (BUN) 20 mg/dL (9-23)
[2018-01-12 09:00] VITALS: BP 155/94
[2018-01-12 12:30] VITALS: BP 154/75
[2018-01-12 16:22] VITALS: BP 139/64
[2018-01-12 20:04] VITALS: BP 127/60
[2018-01-12 23:56] VITALS: BP 129/60
[2018-01-13 03:52] VITALS: BP 142/67
[2018-01-13 07:19] LABS: HEMATOCRIT 27.7 % (36.0-46.0); HEMOGLOBIN 8.6 G/DL (11.9-15.5); MCH 24.3 PG (29.0-34.0); MCV 78.2 FL (83-99); PLATELET COUNT 271 K/uL (156-360); RBC DIS.WIDTH-CV 14.5 % (11.8-14.6); RBC DIS.WIDTH-SD 41.7 % (39-53); RED BLOOD COUNT 3.54 M/uL (3.80-5.20); WHITE BLOOD COUNT 6.9 K/uL (4.1-10.2)
[2018-01-13 07:48] LABS: CHLORIDE 96 MEQ/L (99-109); MAGNESIUM 1.5 mg/dl (1.3-2.7); POTASSIUM 4.1 MEQ/L (3.7-5.4); SODIUM 132 MEQ/L (136-147)
[2018-01-13 07:53] LABS: CREATININE 0.9 MG/DL (0.6-1.3); GFR ESTIMATE (CALCULATED) > 59 mL/min/; GLUCOSE 120 mg/dL (70-99); UREA NITROGEN (BUN) 20 mg/dL (9-23)
[2018-01-13 08:55] VITALS: BP 174/79
[2018-01-13 11:44] VITALS: BP 133/59
[2018-01-13] MEDS ORDERED: FERROUS SULFAT325 MG PO (14:00)
[2018-01-13] MEDS ORDERED: K-DUR10 MEQ PO (14:00)
[2018-01-13] MEDS ORDERED: FUROSEMIDE40 MG PO (14:00)
[2018-01-13] MEDS ORDERED: CYANOCOBALAM1000 MCG PO (14:00)
[2018-01-13 16:21] VITALS: BP 128/60
[2018-01-13 19:03] VITALS: BP 145/65
[2018-01-13 23:11] VITALS: BP 134/69
[2018-01-14 03:34] VITALS: BP 143/68
[2018-01-14 07:13] VITALS: BP 147/71
[2018-01-14 11:01] VITALS: BP 149/68
[2018-01-14 15:37] VITALS: BP 124/56
[2018-01-14 23:45] VITALS: BP 131/63
[2018-01-15 08:40] VITALS: BP 106/53
[2018-01-15 09:33] VITALS: BP 128/62
[2018-01-15 10:09] LABS: CHLORIDE 91 MEQ/L (99-109); CREATININE 0.8 MG/DL (0.6-1.3); GFR ESTIMATE (CALCULATED) > 59 mL/min/; POTASSIUM 4.3 MEQ/L (3.7-5.4); UREA NITROGEN (BUN) 21 mg/dL (9-23)
[2018-01-15 10:12] LABS: GLUCOSE 213 mg/dL (70-99); SODIUM 124 MEQ/L (136-147)
[2018-01-15 14:29] LABS: HEMOGLOBIN A1c (GLYCOHEMOGLOB) 6.1 % (Below 5.7)
[2018-01-15 14:58] VITALS: BP 113/56
[2018-01-15 15:45] LABS: BILIRUBIN NEGATIVE; BLOOD NEGATIVE; COLOR STRAW ((YELLOW)); GLUCOSE (STRIP) NEGATIVE; KETONES NEGATIVE; LEUKOCYTES LARGE; NITRITE NEGATIVE; PROTEIN (STRIP) NEGATIVE; SPECIFIC GRAVITY 1.006 (1.000-1.030); UROBILINOGEN 0.2 MG/DL (0.2-1.0)
[2018-01-15 15:51] LABS: APPEARANCE HAZY ((CLEAR))
[2018-01-15 15:56] LABS: BACTERIA RARE /HPF; EPITHELIAL CELLS RARE /HPF; MUCUS TRACE /LPF; RED BLOOD CELLS 0-5 /HPF (0-5); WHITE BLOOD CELLS 20-30 /HPF (0-5)
[2018-01-15 20:12] VITALS: BP 144/65
[2018-01-16 00:04] VITALS: BP 116/57
[2018-01-16 03:38] VITALS: BP 120/55
[2018-01-16 05:38] LABS: BASOPHIL (%) 0.7 % (0-1); BASOPHIL COUNT 0.1 K/uL (0-0.1); EOSINOPHIL (%) 4.2 % (0-5); EOSINOPHIL COUNT 0.3 K/uL (0-0.3); HEMATOCRIT 25.8 % (36.0-46.0); HEMOGLOBIN 8.3 G/DL (11.9-15.5); IMMATURE GRANULOCYTE (%) 0.3 % (0.0-0.7); LYMPHOCYTE (%) 23.2 % (15-42); LYMPHOCYTE COUNT 1.8 K/uL (1.0-2.8); MCHC 32.2 G/DL (30.0-36.0); MCV 77.7 FL (83-99); MONOCYTE (%) 17.6 % (3-12); MONOCYTE COUNT 1.3 K/uL (0-0.8); NEUTROPHIL COUNT 4.1 K/uL (1.8-6.4); PLATELET COUNT 246 K/uL (156-360); RBC DIS.WIDTH-CV 14.8 % (11.8-14.6); RBC DIS.WIDTH-SD 41.2 % (39-53); RED BLOOD COUNT 3.32 M/uL (3.80-5.20); WHITE BLOOD COUNT 7.6 K/uL (4.1-10.2)
[2018-01-16 06:08] LABS: CHLORIDE 93 MEQ/L (99-109); GFR ESTIMATE (CALCULATED) 56 mL/min/; MAGNESIUM 1.5 mg/dl (1.3-2.7); PHOSPHORUS 3.4 mg/dL (2.5-4.9); SODIUM 126 MEQ/L (136-147); UREA NITROGEN (BUN) 27 mg/dL (9-23); URIC ACID 5.8 mg/dL (3.1-9.2)
[2018-01-16 06:10] LABS: GLUCOSE 99 mg/dL (70-99)
[2018-01-16 07:28] VITALS: BP 150/68
[2018-01-16 08:29] LABS: THYROTROPIN (TSH) 1.3 MIU/L (0.4-5.5)
[2018-01-16 11:30] VITALS: BP 144/60
[2018-01-16 15:30] VITALS: BP 137/80
[2018-01-16 19:51] VITALS: BP 140/67
[2018-01-17 00:41] VITALS: BP 133/65
[2018-01-17 03:31] VITALS: BP 129/65
[2018-01-17 06:16] LABS: CHLORIDE 95 MEQ/L (99-109); GFR ESTIMATE (CALCULATED) 56 mL/min/; GLUCOSE 105 mg/dL (70-99); SODIUM 127 MEQ/L (136-147); UREA NITROGEN (BUN) 29 mg/dL (9-23)
[2018-01-17 06:17] LABS: POTASSIUM 4.9 MEQ/L (3.7-5.4)
[2018-01-17 07:16] VITALS: BP 120/60
[2018-01-17 11:50] VITALS: BP 131/61
[2018-01-17 15:38] VITALS: BP 126/59
[2018-01-17 20:19] VITALS: BP 126/64
[2018-01-18 00:22] VITALS: BP 137/67
[2018-01-18 03:43] VITALS: BP 126/60
[2018-01-18 06:52] LABS: CHLORIDE 97 MEQ/L (99-109); CREATININE 0.9 MG/DL (0.6-1.3); GFR ESTIMATE (CALCULATED) > 59 mL/min/; GLUCOSE 104 mg/dL (70-99); POTASSIUM 4.5 MEQ/L (3.7-5.4); SODIUM 128 MEQ/L (136-147); UREA NITROGEN (BUN) 29 mg/dL (9-23)
[2018-01-18 07:40] VITALS: BP 127/61
[2018-01-18 12:23] VITALS: BP 128/60
[2018-01-18] MEDS ORDERED: POTASSIUM CHLO10 ME4 PO (12:35)
== END 2018-01-18 15:22 | disposition home or self-care (01) | DRG 292 ==
LOC: EME 08:54 → EDBD 08:54 → EDOF 12:24 → 2EAST 12:24 → ENRESERV 12:36 → EDOF 12:37 → ENRESERV 13:25 → 2EAST 14:50
PROVIDERS: Emergency Medicine; Internal Medicine; Internal Medicine Nephrology; Student in an Organized Health Care Education/Training Program
DX: I11.0 Hypertensive heart disease with heart failure (principal); I50.33 Acute on chronic diastolic (congestive) heart failure; E87.1 Hypo-osmolality and hyponatremia; T50.2X5A Adverse effect of carbonic-anhydrase inhibitors, benzothiadiazides and other diuretics, initial encounter; I27.20 Pulmonary hypertension, unspecified; I08.1 Rheumatic disorders of both mitral and tricuspid valves; R09.02 Hypoxemia; I48.0 Paroxysmal atrial fibrillation; D50.9 Iron deficiency anemia, unspecified; I25.10 Atherosclerotic heart disease of native coronary artery without angina pectoris; E11.9 Type 2 diabetes mellitus without complications; K21.9 Gastro-esophageal reflux disease without esophagitis; E66.9 Obesity, unspecified; Z68.33 Body mass index [BMI] 33.0-33.9, adult; Z79.01 Long term (current) use of anticoagulants; Z79.02 Long term (current) use of antithrombotics/antiplatelets; Z95.5 Presence of coronary angioplasty implant and graft
CPT/HCPCS: 71045; 80048; 81003; 82533 91; 82607; 82728; 82746; 83036; 83540; 83735; 83880; 83935; 84100; 84300; 84443; 84466; 84484; 84550; 85025; 85027; 85046; 85379; 85610; 85730; 93005; 93306; 93971; 94640; 94760; 94799; 99202; 99281; 99285; J1940; J7644

== ENCOUNTER → 2018-04-10 | Outpatient (CLI) | payer OTHER ==
[~2018-04-10] VITALS: Ht 158.8 cm; Wt 84.4 kg
[~2018-04-10] MED LIST changes: +CYANOCOBALAM1000 MCG PO; +FERROUS SULFAT325 MG PO; +FUROSEMIDE40 MG PO; +IRON325 M1 PO; +K-DUR10 MEQ PO; +LASIX20 MG PO; +LIPITOR10 MG PO; +PLAVIX75 MG PO; +POTASSIUM CHLO10 ME3 PO; +POTASSIUM CHLO10 ME4 PO
== END | disposition home or self-care (01) ==
LOC: AMB 12:14
DX: C18.0 Malignant neoplasm of cecum (principal); D12.8 Benign neoplasm of rectum; K64.8 Other hemorrhoids; K57.30 Diverticulosis of large intestine without perforation or abscess without bleeding; K63.5 Polyp of colon; I35.0 Nonrheumatic aortic (valve) stenosis; I11.0 Hypertensive heart disease with heart failure; I50.9 Heart failure, unspecified; I48.91 Unspecified atrial fibrillation; Z79.01 Long term (current) use of anticoagulants; Z90.710 Acquired absence of both cervix and uterus
CPT/HCPCS: 88305